=== PATIENT | male | born 1985 | race Hispanic/Latino ===

== ENCOUNTER 2019-06-24 00:52 | Emergency (ER) | payer OTHER ==
[~2019-06-24] VITALS: Ht 182.9 cm; Wt 117.9 kg
--- OUTSIDE RECORDS SUMMARY | 2019-06-24 00:55 | XMS REPORT ---
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 Allergies, Adverse Reactions, Alerts Allergy Name Allergy Type Status Severity Reaction(s) Onset Date Inactive Date Treating Clinician Comments No Known Allergies DA Active U 2019-06-16 00:00:00 No Known Contrast Allergies DA Active U 2009-05-06 00:00:00 No Known Drug Allergies DA Active U 2009-05-06 00:00:00 No Known Food Allergies DA Active U 2009-05-06 00:00:00 No Known Other Allergies DA Active U 2009-05-06 00:00:00 Medications This patient has no known medications.
[2019-06-24] MEDS ORDERED: TETANUS/DIPHTHERIA TOX ADULT 0.5 ML SYR ONE (01:14)
[2019-06-24] MEDS ORDERED: TETANUS/DIPHTHERIA TOX ADULT 0.5 ML SYR IM ONE (01:15)
== END 2019-06-24 01:41 | disposition home or self-care (01) ==
LOC: FSED 00:52
DX: L02.415 Cutaneous abscess of right lower limb (principal); L02.11 Cutaneous abscess of neck; F17.210 Nicotine dependence, cigarettes, uncomplicated
CPT/HCPCS: 90471; 90714; 99283